=== PATIENT | female | born 1975 | race Caucasian/White ===

== ENCOUNTER 2016-11-11 18:54 | Inpatient (IN) | payer MEDICAID, OTHER ==
[~2016-11-11] VITALS: Ht 160 cm; Wt 63.9 kg
[~2016-11-11 18:54] MED LIST: CITA20TA9 PO; CYCL10 PO; GABA-533 PO; HYDR25CA PO; IBUP-1546 PO; LURA40 PO; PANT40TA25 PO
[2016-11-11] MEDS ORDERED: HYDR-3114 PO (19:30)
[2016-11-11] MEDS ORDERED: CLON2 PO (19:30)
[2016-11-11] MEDS ORDERED: OMEP20 PO (19:30)
[2016-11-11] MEDS ORDERED: GABA-531 PO (19:30)
[2016-11-11] MEDS ORDERED: CITA10TA68 PO (19:30)
[2016-11-11 19:38] LABS: BASOPHILS % (AUTO) 0.3 % (0.0-2.0); EOSINOPHILS % (AUTO) 1.1 % (1.0-6.0); HEMATOCRIT 36.4 % (36-46); HEMOGLOBIN 11.7 g/dL (12.0-16.0); LYMPHOCYTES # (AUTO) 2.2 K/uL (1.0-4.8); LYMPHOCYTES % (AUTO) 24.3 % (22.0-44.0); MEAN CORPUSCULAR HEMOGLOBIN 26.2 pg (26.0-34.0); MEAN CORPUSCULAR HGB CONC 32.2 G/dL (31.0-37.0); MEAN CORPUSCULAR VOLUME 81 fL (80-100); MONOCYTES # (AUTO) 0.5 K/uL (0.1-1.0); MONOCYTES % (AUTO) 5.9 % (2.0-9.0); NEUTROPHILS # (AUTO) 6.1 K/uL (1.8-7.7); NEUTROPHILS % (AUTO) 68.4 % (40.0-70.0); PLATELET COUNT (AUTO) 381 K/uL (150-450); RED BLOOD CELL COUNT(AUTO) 4.47 MIL/uL (4.00-5.20); RED CELL DISTRIBUTION WIDTH 14.6 % (11.5-14.5); WHITE BLOOD COUNT (AUTO) 8.9 K/uL (4.5-11.0)
[2016-11-11 19:56] LABS: ANION GAP 9 mmol/L (8-16); CALCIUM, TOTAL 9.1 mg/dL (8.8-10.5); CARBON DIOXIDE 28 mmol/L (22-29); CHLORIDE 104 mmol/L (98-107); GLOMERULAR FILTR. RATE CALC > 60 mL/min (>60); POTASSIUM 3.7 mmol/L (3.5-5.1); SODIUM SERUM 141 mmol/L (136-145); UREA NITROGEN, BLOOD 17 mg/dL (7-18)
[2016-11-11 20:02] LABS: ALANINE AMINOTRANSFERASE 35 U/L (12-78); ALBUMIN 4.2 g/dL (3.4-5.0); ASPARTATE AMINOTRANSFERASE 23 U/L (15-37); BILIRUBIN,TOTAL 0.4 mg/dL (0.1-1.0); TOTAL PROTEIN, SERUM 8.2 g/dL (6.4-8.2)
[2016-11-11] MEDS ORDERED: HALOPERIDOL LACTATE 5 MG/ML VIAL IM ONE (22:00)
[2016-11-11] MEDS ORDERED: LORazepam 2 MG/ML VIAL IM ONE (22:00)
[2016-11-11] MEDS ORDERED: DiphenhydrAMINE HCL 50 MG/ML VIAL IM ONE (22:00)
[2016-11-11] MEDS ORDERED: DiphenhydrAMINE HCL 25 MG CAPSULE PO ONE (22:15)
[2016-11-11] MEDS ORDERED: LORazepam 2 MG TABLET PO ONE (22:15)
[2016-11-11] MEDS ORDERED: HALOPERIDOL 5 MG TABLET PO ONE (22:15)
[2016-11-11] MEDS ORDERED: MAG HYDROX/AL HYDROX/SIMETH ES 30 ML SUSPENSION UDCUP PO PRN (23:00)
[2016-11-11] MEDS ORDERED: LORazepam 2 MG TABLET PO PRN (23:00)
[2016-11-11] MEDS ORDERED: ACETAMINOPHEN 325 MG TABLET PO PRN (23:00)
[2016-11-11] MEDS ORDERED: ZOLPIDEM TARTRATE 10 MG TABLET PO PRN (23:00)
[2016-11-11] MEDS ORDERED: MAGNESIUM HYDROXIDE SUSPENSION 30 ML UDCUP PO PRN (23:00)
[2016-11-11] MEDS ORDERED: HALOPERIDOL 5 MG TABLET PO PRN (23:00)
[2016-11-11] MEDS ORDERED: ACETAMINOPHEN 500 MG TABLET PO ONE (23:30)
[2016-11-12 01:10] LABS: CHOL/HDL RATIO 3.2 (3.9-5.7)
[2016-11-12 01:38] VITALS: BP 112/74
[2016-11-12 06:11] LABS: APPEARANCE,URINE CLOUDY (CLEAR); GLUCOSE, URINE (UA) NEGATIVE (NEGATIVE); KETONES,URINE NEGATIVE (NEGATIVE); LEUKOCYTE ESTERASE ,URINE NEGATIVE (NEGATIVE); OCCULT BLOOD,URINE NEGATIVE (NEGATIVE); PROTEIN,URINE NEGATIVE (NEGATIVE)
[2016-11-12 06:13] LABS: ADD UA MICROSCOPIC NO
[2016-11-12 08:00] VITALS: BP 117/72
[2016-11-12] MEDS: OLANZapine 10 MG TABLET PO SCH (20:45)
[2016-11-12 20:51] VITALS: BP 115/74
[2016-11-13 08:00] VITALS: BP 107/60
[2016-11-13] MEDS: CITALOPRAM HYDROBROMIDE 20 MG TABLET PO SCH (10:20)
[2016-11-13 18:36] VITALS: BP 121/73
[2016-11-13] MEDS: OLANZapine 10 MG TABLET PO SCH (20:07)
[2016-11-14 08:02] VITALS: BP 93/62
[2016-11-14] MEDS: CITALOPRAM HYDROBROMIDE 20 MG TABLET PO SCH (09:52)
[2016-11-14] MEDS ORDERED: ACETAMINOPHEN 325 MG TABLET PO PRN (15:15)
[2016-11-14] MEDS ORDERED: CYCLOBENZAPRINE HCL 10 MG TABLET PO PRN (15:15)
[2016-11-14] MEDS ORDERED: IBUPROFEN 600 MG TABLET PO PRN (15:15)
[2016-11-14 16:00] VITALS: BP 111/62
[2016-11-14] MEDS ORDERED: LURA80 PO (20:00)
[2016-11-14] MEDS: OLANZapine 7.5 MG TABLET PO SCH (21:58)
[2016-11-15 08:00] VITALS: BP 119/74
[2016-11-15] MEDS: OMEPRAZOLE 20 MG CAPSULE PO SCH (09:34)
[2016-11-15] MEDS: LORATADINE 10 MG TABLET PO SCH (09:34)
[2016-11-15] MEDS: CITALOPRAM HYDROBROMIDE 20 MG TABLET PO SCH (09:34)
[2016-11-15 17:00] VITALS: BP 134/96
[2016-11-15] MEDS: OLANZapine 7.5 MG TABLET PO SCH (20:34)
[2016-11-16 09:00] VITALS: BP 119/63
[2016-11-16] MEDS: CITALOPRAM HYDROBROMIDE 20 MG TABLET PO SCH (09:11)
[2016-11-16] MEDS: OMEPRAZOLE 20 MG CAPSULE PO SCH (09:11)
[2016-11-16] MEDS: LORATADINE 10 MG TABLET PO SCH (09:11)
[2016-11-16 16:30] VITALS: BP 124/86
[2016-11-16] MEDS ORDERED: OLANZapine 10 MG TABLET PO SCH (21:00)
[2016-11-17] MEDS ORDERED: OLAN20TA2 PO (06:06)
[2016-11-17] MEDS ORDERED: BUPR-93 PO ×2 (06:08→08:30)
[2016-11-17] MEDS ORDERED: CITA40TA14 PO (06:09)
[2016-11-17 08:30] VITALS: BP 97/50
[2016-11-17] MEDS ORDERED: LORA10TA7 PO (08:30)
[2016-11-17] MEDS ORDERED: OLAN10TA3 PO (08:31)
[2016-11-17] MEDS ORDERED: BuPROPion HCL XL 150 MG ER TABLET PO SCH (09:00)
[2016-11-17] MEDS: CITALOPRAM HYDROBROMIDE 20 MG TABLET PO SCH (09:21)
[2016-11-17] MEDS: LORATADINE 10 MG TABLET PO SCH (09:21)
[2016-11-17] MEDS: OMEPRAZOLE 20 MG CAPSULE PO SCH (09:21)
== END 2016-11-17 10:00 | disposition home or self-care (01) | DRG 750 ==
LOC: EMS 19:03 → 3EI 11-12 01:00
PROVIDERS: ADMIT Psychiatry & Neurology Psychiatry; ATTEND Psychiatry & Neurology Psychiatry
DX: F25.1 Schizoaffective disorder, depressive type (principal); F15.20 Other stimulant dependence, uncomplicated; Z59.0 Homelessness; Z88.1 Allergy status to other antibiotic agents; Z88.8 Allergy status to other drugs, medicaments and biological substances; F60.3 Borderline personality disorder; D64.9 Anemia, unspecified; J30.9 Allergic rhinitis, unspecified; K21.9 Gastro-esophageal reflux disease without esophagitis; M06.9 Rheumatoid arthritis, unspecified; M19.90 Unspecified osteoarthritis, unspecified site; E78.5 Hyperlipidemia, unspecified; Z72.0 Tobacco use; F41.9 Anxiety disorder, unspecified
CPT/HCPCS: 99285; G0480

== ENCOUNTER 2017-11-06 20:59 | Inpatient (IN) | payer MEDICAID, OTHER ==
[~2017-11-06] VITALS: Ht 160 cm; Wt 68.3 kg
[~2017-11-06 20:59] MED LIST changes: +BUPR-93 PO; +CITA10TA68 PO; -CITA20TA9 PO; -CYCL10 PO; -GABA-533 PO; -HYDR25CA PO; -IBUP-1546 PO; +LORA10TA7 PO; -LURA40 PO; +OLAN10TA3 PO; +OMEP20 PO; -PANT40TA25 PO
[2017-11-06 22:05] LABS: BASOPHILS % (AUTO) 0.5 % (0.0-2.0); EOSINOPHILS % (AUTO) 0.9 % (1.0-6.0); HEMATOCRIT 33.4 % (36-46); HEMOGLOBIN 11.3 g/dL (12.0-16.0); LYMPHOCYTES # (AUTO) 1.7 K/uL (1.0-4.8); LYMPHOCYTES % (AUTO) 14.3 % (22.0-44.0); MEAN CORPUSCULAR HEMOGLOBIN 26.7 pg (26.0-34.0); MEAN CORPUSCULAR HGB CONC 33.9 G/dL (31.0-37.0); MEAN CORPUSCULAR VOLUME 79 fL (80-100); MONOCYTES # (AUTO) 0.7 K/uL (0.1-1.0); NEUTROPHILS # (AUTO) 9.1 K/uL (1.8-7.7); NEUTROPHILS % (AUTO) 78.3 % (40.0-70.0); PLATELET COUNT (AUTO) 413 K/uL (150-450); RED BLOOD CELL COUNT(AUTO) 4.23 MIL/uL (4.00-5.20); RED CELL DISTRIBUTION WIDTH 14.6 % (11.5-14.5)
[2017-11-06 22:12] LABS: AMPHET/METH SCREEN,URINE POSITIVE (NEGATIVE); BARBITURATE SCREEN, URINE NEGATIVE (NEGATIVE); BENZODIAZEPINES SCREEN,URINE NEGATIVE (NEGATIVE); CANNABINOID SCREEN,URINE POSITIVE (NEGATIVE); COCAINE SCREEN,URINE NEGATIVE (NEGATIVE); METHADONE SCREEN, URINE NEGATIVE (NEGATIVE); OPIATE SCREEN,URINE NEGATIVE (NEGATIVE); PHENCYCLIDINE SCREEN,URINE NEGATIVE (NEGATIVE)
[2017-11-06 22:19] LABS: ANION GAP 6 mmol/L (8-16); CALCIUM, TOTAL 8.8 mg/dL (8.8-10.5); CARBON DIOXIDE 28 mmol/L (22-29); CHLORIDE 104 mmol/L (98-107); CREATININE 1.02 mg/dL (0.60-1.30); GLOMERULAR FILTR. RATE CALC 60 mL/min (>60); GLUCOSE,RANDOM 96 mg/dL (70-110); POTASSIUM 3.7 mmol/L (3.5-5.1); SODIUM SERUM 138 mmol/L (136-145); UREA NITROGEN, BLOOD 20 mg/dL (7-18)
[2017-11-06 22:25] LABS: ALANINE AMINOTRANSFERASE 44 U/L (12-78); ALBUMIN 4.2 g/dL (3.4-5.0); ALKALINE PHOSPHATASE 73 U/L (46-116); ASPARTATE AMINOTRANSFERASE 37 U/L (15-37); BILIRUBIN,TOTAL 0.3 mg/dL (0.1-1.0); TOTAL PROTEIN, SERUM 8.2 g/dL (6.4-8.2)
[2017-11-06] MEDS ORDERED: DiphenhydrAMINE HCL 25 MG CAPSULE PO ONE (22:45)
[2017-11-06] MEDS ORDERED: HALOPERIDOL 5 MG TABLET PO ONE (22:45)
[2017-11-06] MEDS ORDERED: LORazepam 2 MG TABLET PO ONE (22:45)
[2017-11-06] MEDS ORDERED: LORazepam 2 MG TABLET PO PRN (23:00)
[2017-11-06] MEDS ORDERED: OLANZapine 5 MG RAPDIS TABLET PO PRN (23:00)
[2017-11-06] MEDS ORDERED: ZOLPIDEM TARTRATE 10 MG TABLET PO PRN (23:00)
[2017-11-06 23:06] LABS: APPEARANCE,URINE CLEAR (CLEAR); BILIRUBIN,URINE NEGATIVE (NEGATIVE); GLUCOSE, URINE (UA) NEGATIVE (NEGATIVE); KETONES,URINE NEGATIVE (NEGATIVE); LEUKOCYTE ESTERASE ,URINE NEGATIVE (NEGATIVE); NITRATE,URINE NEGATIVE (NEGATIVE); OCCULT BLOOD,URINE SMALL (NEGATIVE); PROTEIN,URINE POS 1+ (NEGATIVE); UROBILINOGEN,URINE 0.2 mg/dL (<=1.0)
[2017-11-06 23:27] LABS: WBC,URINE 0-2 /HPF (0-5)
[2017-11-06 23:28] LABS: BACTERIA,URINE Rare /HPF (None Seen); SQUAMOUS EPITHELIAL CELL,UR Few /LPF (None Seen)
[2017-11-07 00:55] LABS: CHOLESTEROL 244 mg/dL (131-200); FREE T4 (FREE THYROXINE) 0.88 ng/dL (0.76-1.46); HDL CHOLESTEROL 81 mg/dL (40-60); LDL CHOL (CALC.) 136 mg/dL (0-130); THYROID STIMULATING HORMONE 2.61 uIU/mL (0.36-3.74); TRIGLYCERIDES 137 mg/dL (15-150)
[2017-11-07 04:35] VITALS: BP 132/73
[2017-11-07] MEDS ORDERED: IBUPROFEN 600 MG TABLET PO PRN (09:00)
[2017-11-07] MEDS ORDERED: ACETAMINOPHEN 325 MG TABLET PO PRN ×2 (09:00→09:45)
[2017-11-07 09:45] VITALS: BP 96/57
[2017-11-07] MEDS ORDERED: PROMETHAZINE HCL 25 MG TABLET PO PRN (09:45)
[2017-11-07] MEDS ORDERED: MAG HYDROX/AL HYDROX/SIMETH ES 30 ML SUSPENSION UDCUP PO PRN (09:45)
[2017-11-07] MEDS ORDERED: GuaiFENesin/D-METHORPHAN [SUGAR-FREE] 200-20MG/10 ML SYRUP UDCUP PO PRN (09:45)
[2017-11-07] MEDS ORDERED: MAGNESIUM HYDROXIDE SUSPENSION 30 ML UDCUP PO PRN (09:45)
[2017-11-07] MEDS ORDERED: TUBERCULIN, PURIFIED PROTEIN DERIVATIVE 5 TU/0.1 ML SYG ID ONE (09:45)
[2017-11-07] MEDS ORDERED: LOPERAMIDE HCL 2 MG CAPSULE PO PRN (09:45)
[2017-11-07] MEDS ORDERED: HydrOXYzine PAMOATE 50 MG CAPSULE PO PRN (09:45)
[2017-11-07] MEDS: GABAPENTIN 300 MG CAPSULE PO SCH ×2 (13:00→17:02)
[2017-11-07] MEDS: THIAMINE HCL 100 MG TABLET PO SCH (17:02)
[2017-11-07] MEDS ORDERED: CITA-106 PO (17:13)
[2017-11-07 17:19] VITALS: BP 111/69
[2017-11-07] MEDS ORDERED: OLANZapine 5 MG RAPDIS TABLET PO SCH (21:00)
[2017-11-08] MEDS ORDERED: PARoxetine HCL 20 MG TABLET PO SCH (09:00)
[2017-11-08] MEDS: FOLIC ACID 1 MG TABLET PO SCH (10:24)
[2017-11-08] MEDS: BuPROPion HCL XL 150 MG ER TABLET PO SCH (10:24)
[2017-11-08] MEDS: MULTIVITAMINS WITH MINERALS, THERAPEUTIC TABLET PO SCH (10:24)
[2017-11-08] MEDS: GABAPENTIN 300 MG CAPSULE PO SCH ×3 (10:24→17:50)
[2017-11-08] MEDS: THIAMINE HCL 100 MG TABLET PO SCH ×2 (10:24→17:50)
[2017-11-08] MEDS: NALTREXONE HCL 50 MG TABLET PO SCH (10:24)
[2017-11-08 19:11] VITALS: BP 124/79
[2017-11-08] MEDS: OLANZapine 10 MG RAPDIS TABLET PO SCH (21:48)
[2017-11-09 03:48] VITALS: BP 103/74
[2017-11-09] MEDS: THIAMINE HCL 100 MG TABLET PO SCH ×2 (08:49→16:54)
[2017-11-09] MEDS: MULTIVITAMINS WITH MINERALS, THERAPEUTIC TABLET PO SCH (08:49)
[2017-11-09] MEDS: GABAPENTIN 300 MG CAPSULE PO SCH ×3 (08:49→16:55)
[2017-11-09] MEDS: NALTREXONE HCL 50 MG TABLET PO SCH (08:49)
[2017-11-09] MEDS: BuPROPion HCL XL 150 MG ER TABLET PO SCH (08:49)
[2017-11-09] MEDS: FOLIC ACID 1 MG TABLET PO SCH (08:49)
[2017-11-09 09:42] VITALS: BP 140/69
[2017-11-09 18:03] VITALS: BP 108/68
[2017-11-09] MEDS: OLANZapine 10 MG RAPDIS TABLET PO SCH (20:49)
[2017-11-10] MEDS: THIAMINE HCL 100 MG TABLET PO SCH ×2 (09:20→17:39)
[2017-11-10] MEDS: GABAPENTIN 400 MG CAPSULE PO SCH ×3 (09:21→17:39)
[2017-11-10] MEDS: NALTREXONE HCL 50 MG TABLET PO SCH (09:21)
[2017-11-10] MEDS: MULTIVITAMINS WITH MINERALS, THERAPEUTIC TABLET PO SCH (09:21)
[2017-11-10] MEDS: FOLIC ACID 1 MG TABLET PO SCH (09:21)
[2017-11-10] MEDS: BuPROPion HCL XL 150 MG ER TABLET PO SCH (09:21)
[2017-11-10 10:10] VITALS: BP 114/79
[2017-11-10 18:17] VITALS: BP 127/82
[2017-11-10] MEDS: OLANZapine 10 MG RAPDIS TABLET PO SCH (20:19)
[2017-11-11] MEDS: FOLIC ACID 1 MG TABLET PO SCH (09:01)
[2017-11-11] MEDS: THIAMINE HCL 100 MG TABLET PO SCH ×2 (09:02→17:55)
[2017-11-11] MEDS: BuPROPion HCL XL 150 MG ER TABLET PO SCH (09:02)
[2017-11-11] MEDS: NALTREXONE HCL 50 MG TABLET PO SCH (09:02)
[2017-11-11] MEDS: MULTIVITAMINS WITH MINERALS, THERAPEUTIC TABLET PO SCH (09:02)
[2017-11-11] MEDS: GABAPENTIN 400 MG CAPSULE PO SCH ×3 (09:02→17:55)
[2017-11-11 09:15] VITALS: BP 109/75
[2017-11-11 19:26] VITALS: BP 105/73
[2017-11-11] MEDS: OLANZapine 10 MG RAPDIS TABLET PO SCH (20:07)
[2017-11-12 09:29] VITALS: BP 106/65
[2017-11-12] MEDS: MULTIVITAMINS WITH MINERALS, THERAPEUTIC TABLET PO SCH (09:40)
[2017-11-12] MEDS: FOLIC ACID 1 MG TABLET PO SCH (09:40)
[2017-11-12] MEDS: THIAMINE HCL 100 MG TABLET PO SCH ×2 (09:40→16:32)
[2017-11-12] MEDS: GABAPENTIN 400 MG CAPSULE PO SCH ×3 (09:40→16:32)
[2017-11-12] MEDS: NALTREXONE HCL 50 MG TABLET PO SCH (09:41)
[2017-11-12] MEDS: BuPROPion HCL XL 150 MG ER TABLET PO SCH (09:42)
[2017-11-12 16:39] VITALS: BP 112/80
[2017-11-12] MEDS: OLANZapine 10 MG RAPDIS TABLET PO SCH (22:00)
[2017-11-13] MEDS: GABAPENTIN 400 MG CAPSULE PO SCH ×2 (08:47→12:53)
[2017-11-13] MEDS: FOLIC ACID 1 MG TABLET PO SCH (08:47)
[2017-11-13] MEDS: NALTREXONE HCL 50 MG TABLET PO SCH (08:48)
[2017-11-13] MEDS: THIAMINE HCL 100 MG TABLET PO SCH ×2 (08:48→17:23)
[2017-11-13] MEDS: MULTIVITAMINS WITH MINERALS, THERAPEUTIC TABLET PO SCH (08:48)
[2017-11-13] MEDS: BuPROPion HCL XL 150 MG ER TABLET PO SCH (08:48)
[2017-11-13 10:48] VITALS: BP 121/88
[2017-11-13 20:40] VITALS: BP 126/97
[2017-11-13] MEDS: OLANZapine 10 MG RAPDIS TABLET PO SCH (21:09)
[2017-11-14] MEDS: NALTREXONE HCL 50 MG TABLET PO SCH (10:00)
[2017-11-14] MEDS: GABAPENTIN 300 MG CAPSULE PO SCH ×3 (10:00→16:09)
[2017-11-14] MEDS: BuPROPion HCL XL 150 MG ER TABLET PO SCH (10:01)
[2017-11-14] MEDS: MULTIVITAMINS WITH MINERALS, THERAPEUTIC TABLET PO SCH (10:01)
[2017-11-14] MEDS: THIAMINE HCL 100 MG TABLET PO SCH ×2 (10:01→16:08)
[2017-11-14] MEDS: FOLIC ACID 1 MG TABLET PO SCH (10:01)
[2017-11-14 12:38] VITALS: BP 138/74
[2017-11-14 17:12] VITALS: BP 110/76
[2017-11-14] MEDS: OLANZapine 10 MG RAPDIS TABLET PO SCH (20:27)
[2017-11-14 21:08] VITALS: BP 115/68
[2017-11-15] MEDS ORDERED: BuPROPion HCL XL 150 MG ER TABLET PO SCH (09:00)
[2017-11-15] MEDS: NALTREXONE HCL 50 MG TABLET PO SCH (09:40)
[2017-11-15] MEDS: THIAMINE HCL 100 MG TABLET PO SCH (09:40)
[2017-11-15] MEDS: FOLIC ACID 1 MG TABLET PO SCH (09:40)
[2017-11-15] MEDS: MULTIVITAMINS WITH MINERALS, THERAPEUTIC TABLET PO SCH (09:40)
[2017-11-15] MEDS: GABAPENTIN 300 MG CAPSULE PO SCH (09:40)
[2017-11-15] MEDS ORDERED: GABA-531 PO (11:07)
[2017-11-15] MEDS ORDERED: OLAN10TA6 PO (11:07)
[2017-11-15] MEDS ORDERED: BUPR-93 PO (11:07)
[2017-11-15] MEDS ORDERED: NALT50TA6 PO (11:07)
[2017-11-15 11:56] VITALS: BP 122/80
== END 2017-11-15 13:34 | disposition home or self-care (01) | DRG 750 ==
LOC: EMS 21:00 → 3EI 11-07 01:00
PROVIDERS: ADMIT Psychiatry & Neurology Psychiatry; ATTEND Psychiatry & Neurology Psychiatry
DX: F20.9 Schizophrenia, unspecified (principal); Z91.19 Patient's noncompliance with other medical treatment and regimen; F32.9 Major depressive disorder, single episode, unspecified; E78.5 Hyperlipidemia, unspecified; D64.9 Anemia, unspecified; D72.829 Elevated white blood cell count, unspecified; F12.90 Cannabis use, unspecified, uncomplicated; G47.30 Sleep apnea, unspecified; G89.29 Other chronic pain; J30.9 Allergic rhinitis, unspecified; F60.9 Personality disorder, unspecified; F17.210 Nicotine dependence, cigarettes, uncomplicated; K21.9 Gastro-esophageal reflux disease without esophagitis; M06.9 Rheumatoid arthritis, unspecified; F41.9 Anxiety disorder, unspecified; Z59.0 Homelessness; Z82.0 Family history of epilepsy and other diseases of the nervous system; Z83.3 Family history of diabetes mellitus; Z91.5 Personal history of self-harm; Z98.51 Tubal ligation status; Z88.2 Allergy status to sulfonamides; Z88.1 Allergy status to other antibiotic agents; Z79.899 Other long term (current) drug therapy
CPT/HCPCS: 84439; 84443; 99285; G0480